=== PATIENT | female | born 1960 | race African-American/Black ===

== ENCOUNTER 2017-01-29 17:43 | Emergency (ER) | payer OTHER ==
--- NOTE | 2017-01-29 18:26 | ED NURSING NOTES ---
Clinical Report - Nurses [facility] [address] [place] [address] 01/29/2017 17:44 Patient: VARSHA GÓMEZ TRIAGE Triage time 17:56. Acuity: LEVEL 4. Chief Complaint: PAINFUL URINATION and FREQUENCY and BLOOD IN URINE. Alert. No acute distress. SEPSIS SCREEN: Sepsis Screen. Negative (no infection suspected/documented). JOCELYNN COMA SCORE: [place] Coma Scale: 15- eyes open spontaneously (4); best verbal response- oriented x 4 (5); best motor response- obeys commands (6). --18:02 Maria Luisa Vegas R.N. 17:56 01/29/17. BP: 158/82. HR: 68. RR: 16. O2 saturation: 96%. Temp: 98.6 F. Pain level now: 06/16. --18:02 Maria Luisa Vegas R.N. Weight: 44.4 kg stated. Height/Length: 58 inches Per Patient. BMI: 20.5. --18:02 Maria Luisa Vegas R.N. Medications Multiple Vitamins Oral. --18:00 Maria Luisa Vegas R.N. Calcium x1 weekly. --18:00 Maria Luisa Vegas R.N. Allergies No Known Drug Allergy. --18:00 Maria Luisa Vegas R.N. History Arrived by private vehicle. Historian: patient. Accompanied by spouse. Primary physician (Citlaly). Onset. (2 days ago). 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 PAST MEDICAL HX: Immunizations: up-to-date. SOCIAL HX: Light tobacco smoker (cigarette)- less than 1/2 a pack per day. No alcohol use or drug use. ABUSE ASSESSMENT: Abuse assessment: The patient was asked "Do you feel safe in your home?" and "Has anyone hurt you or threatened to hurt you?". No report of abuse. NUTRITIONAL RISK ASSESSMENT: The nutritional risk assessment revealed no deficiencies. FUNCTIONAL ASSESSMENT: Functional assessment: no impairments noted. LEARNING NEEDS ASSESSMENT: The learning needs assessment revealed no barriers. --18:02 Maria Luisa Vegas R.N. PROBLEMS: UTI - Urinary Tract Infection. --18:01 Maria Luisa Vegas R.N. ADDITIONAL SURGERIES: . --18:01 Maria Luisa Vegas R.N. Interventions ID band on patient. Ambulatory. --18:02 Maria Luisa Vegas R.N. PHYSICAL ASSESSMENT Ambulatory to room. GENERAL / NEURO / PSYCH: Alert. Appears in no acute distress. HEENT: Mucous membranes are pink. RESPIRATORY: Respirations not labored. CVS: Capillary refill less than 2 seconds. GI / : Abdomen soft. Abdominal tenderness in the lower abdomen. SKIN: Skin is warm and dry. --18:02 Maria Luisa Vegas R.N. NURSING PROGRESS NOTES Patient gowned. Head of bed elevated. Two patient identifiers checked. Call light placed in reach. Side rails up x 2. Bed placed in lowest position. Brakes of bed on. Patient ready for evaluation- chart flagged. --18:03 Maria Luisa Vegas R.N. Patient ID band checked for patient name, birthdate and medical record number: patient confirmed. Instructions provided to collect clean catch urine and patient verbalized understanding. Clean catch urine collected with return of yellow-colored clear urine; sample sent to lab for urinalysis. Specimen labeled in the presence of the patient. --18:03 Maria Luisa Vegas R.N. DISPOSITION / DISCHARGE 18:30 01/29/17. RR: 16. Additional comments: d/c v/s deferred due to pt. in ED < 1 hour. Pt. appears stable and comfortable at time of discharge. . --18:40 aMria Luisa Vegas R.N. 18:30. Departure time: 1830. Condition at departure: stable. No learning barriers present. Discharge instructions provided and reviewed with the patient. Reviewed medication(s) side effects, precautions, dosing and course information. Prescription(s) given to the patient. Reviewed referral to family practice for followup. Patient verbalized understanding. Written instructions provided in Bahamian. The patient was discharged home and accompanied by automobile body repairer helper. She left the Emergency Department ambulatory and via private vehicle. Faro Dealer driving. Medication list reviewed and validated. --18:40 Maria Luisa Vegas R.N. Locked/Released at 01/29/2017 18:40 by Maria Luisa Vegas R.N.
--- NOTE | 2017-01-29 18:26 | ED NURSING NOTES ---
Clinical Report - Nurses [facility] [address] [place] [address] 01/29/2017 17:44 Patient: VARSHA GÓMEZ TRIAGE Triage time 17:56. Acuity: LEVEL 4. Chief Complaint: PAINFUL URINATION and FREQUENCY and BLOOD IN URINE. Alert. No acute distress. SEPSIS SCREEN: Sepsis Screen. Negative (no infection suspected/documented). JOCELYNN COMA SCORE: [place] Coma Scale: 15- eyes open spontaneously (4); best verbal response- oriented x 4 (5); best motor response- obeys commands (6). --18:02 Maria Luisa Vegas R.N. 17:56 01/29/17. BP: 158/82. HR: 68. RR: 16. O2 saturation: 96%. Temp: 98.6 F. Pain level now: 06/16. --18:02 Maria Luisa Vegas R.N. Weight: 44.4 kg stated. Height/Length: 58 inches Per Patient. BMI: 20.5. --18:02 Maria Luisa Vegas R.N. Medications Multiple Vitamins Oral. --18:00 Maria Luisa Vegas R.N. Calcium x1 weekly. --18:00 Maria Luisa Vegas R.N. Allergies No Known Drug Allergy. --18:00 Maria Luisa Vegas R.N. History Arrived by private vehicle. Historian: patient. Accompanied by spouse. Primary physician (Citlaly). Onset. (2 days ago). 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 PAST MEDICAL HX: Immunizations: up-to-date. SOCIAL HX: Light tobacco smoker (cigarette)- less than 1/2 a pack per day. No alcohol use or drug use. ABUSE ASSESSMENT: Abuse assessment: The patient was asked "Do you feel safe in your home?" and "Has anyone hurt you or threatened to hurt you?". No report of abuse. NUTRITIONAL RISK ASSESSMENT: The nutritional risk assessment revealed no deficiencies. FUNCTIONAL ASSESSMENT: Functional assessment: no impairments noted. LEARNING NEEDS ASSESSMENT: The learning needs assessment revealed no barriers. --18:02 Maria Luisa Vegas R.N. PROBLEMS: UTI - Urinary Tract Infection. --18:01 Maria Luisa Vegas R.N. ADDITIONAL SURGERIES: . --18:01 Maria Luisa Vegas R.N. Interventions ID band on patient. Ambulatory. --18:02 Maria Luisa Vegas R.N. PHYSICAL ASSESSMENT Ambulatory to room. GENERAL / NEURO / PSYCH: Alert. Appears in no acute distress. HEENT: Mucous membranes are pink. RESPIRATORY: Respirations not labored. CVS: Capillary refill less than 2 seconds. GI / : Abdomen soft. Abdominal tenderness in the lower abdomen. SKIN: Skin is warm and dry. --18:02 Maria Luisa Vegas R.N. NURSING PROGRESS NOTES Patient gowned. Head of bed elevated. Two patient identifiers checked. Call light placed in reach. Side rails up x 2. Bed placed in lowest position. Brakes of bed on. Patient ready for evaluation- chart flagged. --18:03 Maria Luisa Vegas R.N. Patient ID band checked for patient name, birthdate and medical record number: patient confirmed. Instructions provided to collect clean catch urine and patient verbalized understanding. Clean catch urine collected with return of yellow-colored clear urine; sample sent to lab for urinalysis. Specimen labeled in the presence of the patient. --18:03 Maria Luisa Vegas R.N. DISPOSITION / DISCHARGE 18:30 01/29/17. RR: 16. Additional comments: d/c v/s deferred due to pt. in ED < 1 hour. Pt. appears stable and comfortable at time of discharge. . --18:40 Maria Luisa Vegas R.N. 18:30. Departure time: 1830. Condition at departure: stable. No learning barriers present. Discharge instructions provided and reviewed with the patient. Reviewed medication(s) side effects, precautions, dosing and course information. Prescription(s) given to the patient. Reviewed referral to family practice for followup. Patient verbalized understanding. Written instructions provided in Portuguese. The patient was discharged home and accompanied by ferryboat helper. She left the Emergency Department ambulatory and via private vehicle. Pecan Gatherer driving. Medication list reviewed and validated. --18:40 Maria Luisa Vegas R.N. Locked/Released at 01/29/2017 18:40 by Maria Luisa Vegas R.N.
--- NOTE | 2017-01-29 18:26 | ED ORDER SUMMARY ---
..... Patient: VARSHA GÓMEZ OrderSheet [facility] VisitID: [id number] [address] [place] [address] 56y, F Registration Date/Time: 01/29/2017 ORDER SHEET Weight: 44.4 kg (stated) Allergies: No Known Drug Allergy GENERAL ORDERS: UA-Culture if indicated Urgent (17:55 01/29/2017 Hipolito BREAUX) ([facility] MEDICATION ORDERS: IV FLUIDS: ORDER SHEET NOTES: [Electronically signed by Maria Luisa Vegas R.N. (18:40 01/29/2017)] [Electronically signed by Ana Jones PA-C (20:15 01/29/2017)] [Electronically locked/signed by Maria Luisa Vegas R.N. (18:40 01/29/2017)]
--- NOTE | 2017-01-29 18:26 | ED ORDER SUMMARY ---
..... Patient: VARSHA GÓMEZ OrderSheet [facility] VisitID: [id number] [address] [place] [address] 56y, F Registration Date/Time: 01/29/2017 ORDER SHEET Weight: 44.4 kg (stated) Allergies: No Known Drug Allergy GENERAL ORDERS: UA-Culture if indicated Urgent (17:55 01/29/2017 Hipolito BREAUX) (18:02 [facility] MEDICATION ORDERS: IV FLUIDS: ORDER SHEET NOTES: [Electronically signed by Maria Luisa Vegas R.N. (18:40 01/29/2017)] [Electronically signed by Ana Jones PA-C (20:15 01/29/2017)] [Electronically locked/signed by Maria Luisa Vegas R.N. (18:40 01/29/2017)]
--- NOTE | 2017-01-29 18:26 | ED CLINICAL REPORT ---
Clinical Report - Physicians/Mid Levels [facility] [address] [place] [address] 01/29/2017 17:44 Patient: VARSHA GÓMEZ Time Seen: 18:01; initial patient contact. Arrived- By private vehicle. Historian- patient. HISTORY OF PRESENT ILLNESS Chief Complaint: DYSURIA. This started yesterday PAINFUL URINATION and FREQUENCY and BLOOD IN URINE. and still present. The symptoms are described as mild. No flank pain. She has had pain with urination and urgency of urination. The patient has had urinary frequency and hematuria. Sexually active. Denies current . Similar symptoms previously: Several times. Recent medical care: Not recently seen/assessed. REVIEW OF SYSTEMS No nausea, vomiting, diarrhea or black stools. All systems otherwise negative, except as recorded above. PAST HISTORY See nurses notes. Problems: Immunizations. LNMP - Last Normal Menstrual Period. UTI - Urinary Tract Infection. Medications: Calcium x1 weekly. Multiple Vitamins Oral. Allergies: No Known Drug Allergy. SOCIAL HISTORY Light tobacco smoker (cigarette)- less than 1/2 a pack per day. No alcohol use or drug use. FAMILY HISTORY Negative. ADDITIONAL NOTES The nursing notes have been reviewed with agreement regarding the chief complaint, HPI, ROS, PMH and patient medications and allergies. PHYSICAL EXAM Vital Signs: 01/29/2017 17:56 BP: 158/82. HR: 68. RR: 16. O2 saturation: 96%. Temp: 98.6 F. Pain level now: 8/10. Have been reviewed. Appearance: Alert. Oriented X3. No acute distress. Abdomen: Soft and nontender. Bowel sounds normal. No organomegaly. No mass. Back: No CVA tenderness. LABS, X-RAYS, AND EKG Laboratory Tests: UA-Culture if indicated: (SATINDER: 01/29/2017 17:57) ( MsgRcvd 01/29/2017 18:28) Final results Test Result Flag Units (Reference) URINE COLOR YELLOW URINE APPEARANCE CLEAR URINE GLUCOSE NEGATIVE (NEGATIVE) URINE BILIRUBIN NEGATIVE (NEGATIVE) URINE KETONE NEGATIVE (NEGATIVE) URINE SPECIFIC GRAVITY <= 1.005 L (1.010-1.030) URINE PH 6.5 (5.0-8.0) URINE PROTEIN NEGATIVE (NEGATIVE) URINE UROBILINOGEN 0.2 EU/dL (0.2-1.0) URINE NITRITE NEGATIVE (NEGATIVE) URINE BLOOD 2+ (NEGATIVE) URINE LEUK ESTERASE POSITIVE (NEGATIVE) URINE RBC 0-1 rbc/hpf (0-1) URINE WBC 15-25 wbc/hpf (0-1) URINE EPITHELIAL CELLS 3-5 EPI/hpf (0-5) URINE BACTERIA FEW (1+) (NONE SEEN) URINE COMMENT CULTURE INDICATED URINE CULTURES ARE SET-UP BASED ON THE FOLLOWING CRITERIA:POSITIVE NITRITEPOSITIVE LEUKOCYTE ESTERASEGREATER THAN 10 WHITE BLOOD CELLSMODERATE (2+) OR GREATER BACTERIA . PROGRESS AND PROCEDURES Course of Care: Patient is stable. Physical exam findings are unchanged. The patient's symptoms are unchanged. CLINICAL IMPRESSION Acute urinary tract infection with cystitis. INSTRUCTIONS No restrictions to activity. Drink plenty of fluids. No sexual contact for two days until better. Warnings: GENERAL WARNINGS: Return or contact your physician immediately if your condition worsens or changes unexpectedly, if not improving as expected, or if other problems arise. Your Current Medications: CONTINUE TAKING THE FOLLOWING MEDICATIONS: Calcium x1 weekly*. Multiple Vitamins Oral. Prescription Medications: Pyridium 100 mg: take 1 orally every 6 hours as needed for urinary problems. Dispense ten (10). No refill. Substitution is permissible. Septra DS 800 mg / 160 mg: take 1 tablet orally every 12 hours for 7 days. No refill. Substitution is permissible. Follow-up: Go to your doctor in 3 days for results of cultures. Follow up with your doctor if not well. Understanding of the discharge instructions verbalized by patient and family. (Electronically signed by Ana Jones PA-C 01/29/2017 20:15)
--- NOTE | 2017-01-29 20:16 | ED MED RECONCILIATION SUMMARY ---
Patient: VARSHA GÓMEZ Medication Reconciliation Report [facility] VisitID: [id number] [address] [place] [address] 56y, F Registration Date/Time: 01/29/2017 Weight: 44.4 kg Height/Length: 58 in. BMI: 20.5 ALLERGIES: No Known Drug Allergy The patient's Home Medications are listed below: CONTINUE TAKING THE FOLLOWING MEDICATIONS: Calcium x1 weekly Multiple Vitamins Oral The source(s) of the original Home Medication information: Not obtained. The following Medications were given to the patient in the Emergency Department: None. The following Medications were prescribed to the patient: Pyridium 100 mg: take 1 orally every 6 hours as needed for urinary problems. Dispense ten (10). No refill. Substitution is permissible. -- Ana Jones PA-C Septra DS 800 mg / 160 mg: take 1 tablet orally every 12 hours for 7 days. No refill. Substitution is permissible. -- Ana Jones PA-C
--- NOTE | 2017-01-29 20:16 | ED MAR SUMMARY ---
..... Medication Administration Record [facility] [address] [place], [place] [id number] Patient: VARSHA GÓMEZ Visit ID: [id number] 56y, F Weight: 44.4 kg Height/Length: 58 in BMI: 20.5 ALLERGIES: No Known Drug Allergy
--- NOTE | 2017-01-29 20:16 | ED DISCHARGE INSTRUCTIONS ---
Patient: VARSHA GÓMEZ General Instructions [facility] VisitID: [id number] [place] [address] 56y, F Registration Date/Time: 01/29/2017 Acute urinary tract infection with cystitis. INSTRUCTIONS No restrictions to activity. Drink plenty of fluids. No sexual contact for two days until better. Warnings: GENERAL WARNINGS: Return or contact your physician immediately if your condition worsens or changes unexpectedly, if not improving as expected, or if other problems arise. Your Current Medications: CONTINUE TAKING THE FOLLOWING MEDICATIONS: Calcium x1 weekly*. Multiple Vitamins Oral. Prescription Medications: Pyridium 100 mg: take 1 orally every 6 hours as needed for urinary problems. Dispense ten (10). No refill. Substitution is permissible. Septra DS 800 mg / 160 mg: take 1 tablet orally every 12 hours for 7 days. No refill. Substitution is permissible. Follow-up: Go to your doctor in 3 days for results of cultures. Follow up with your doctor if not well. Understanding of the discharge instructions verbalized by patient and family. ADDITIONAL INFORMATION Bladder Infection,Female (Adult) A bladder infection ("cystitis" or "UTI") usually causes a constant urge to urinate and a burning when passing urine. Urine may be cloudy, smelly or dark. There may be pain in the lower abdomen. A bladder infection occurs when bacteria from the vaginal area enter the bladder opening (urethra). This can occur from sexual intercourse, wearing tight clothing, dehydration and other factors. Home Care: Drink lots of fluids (at least 6-8 glasses a day, unless you must restrict fluids for other medical reasons). This will force the medicine into your urinary system and flush the bacteria out of your body. Avoid sexual intercourse until your symptoms are gone. Avoid caffeine, alcohol and spicy foods. These can irritate the bladder. A bladder infection is treated with antibiotics. You may also be given Pyridium (generic = phenazopyridine) to reduce the burning sensation. This medicine will cause your urine to become a bright orange color. The orange urine may stain clothing. You may wear a pad or panty-liner to protect clothing. Preventing Future Infections: Always wipe from front to back after a bowel movement. Keep the genital area clean and dry. Drink plenty of fluids each day to avoid dehydration. Both sexual partners should wash before intercourse. Urinate right after intercourse to flush out the bladder. Wear cotton underwear and cotton-lined panty hose; avoid tight-fitting pants. If you are on control pills and are having frequent bladder infections, discuss with your doctor. Follow Up: Return to this facility or see your doctor if ALL symptoms are not gone after three days of treatment. Get Prompt Medical Attention if any of the following occur: Fever of 100.4F (38C) or higher, or as directed by your healthcare provider No improvement by the third day of treatment Increasing back or abdominal pain Repeated vomiting; unable to keep medicine down Weakness, dizziness or fainting Vaginal discharge Pain, redness or swelling in the labia (outer vaginal area) You have been given the following additional information: Bladder Infection, Female (Adult) No restrictions to activity. (Electronically signed by Ana Jones PA-C 01/29/2017 20:15)
--- NOTE | 2017-01-29 20:16 | ED MAR SUMMARY ---
..... Medication Administration Record [facility] [address] [place], [place] [id number] Patient: VARSHA GÓMEZ Visit ID: [id number] 56y, F Weight: 44.4 kg Height/Length: 58 in BMI: 20.5 ALLERGIES: No Known Drug Allergy
--- NOTE | 2017-01-29 20:16 | ED MED RECONCILIATION SUMMARY ---
Patient: VARSHA GÓMEZ Medication Reconciliation Report [facility] VisitID: [id number] [address] [place] [address] 56y, F Registration Date/Time: 01/29/2017 Weight: 44.4 kg Height/Length: 58 in. BMI: 20.5 ALLERGIES: No Known Drug Allergy The patient's Home Medications are listed below: CONTINUE TAKING THE FOLLOWING MEDICATIONS: Calcium x1 weekly Multiple Vitamins Oral The source(s) of the original Home Medication information: Not obtained. The following Medications were given to the patient in the Emergency Department: None. The following Medications were prescribed to the patient: Pyridium 100 mg: take 1 orally every 6 hours as needed for urinary problems. Dispense ten (10). No refill. Substitution is permissible. -- Ana Jones PA-C Septra DS 800 mg / 160 mg: take 1 tablet orally every 12 hours for 7 days. No refill. Substitution is permissible. -- Ana Jones PA-C
== END 2017-01-29 18:30 | disposition home or self-care (01) ==
LOC: ED SRH 17:43
DX: N30.90 Cystitis, unspecified without hematuria (principal); F17.210 Nicotine dependence, cigarettes, uncomplicated
CPT/HCPCS: 90004; 90469